=== PATIENT | female | born 1990 | race Caucasian/White ===

== ENCOUNTER 2016-10-31 12:19 | Emergency (ER) | payer SELFPAY ==
[2016-10-31 15:21] VITALS: BP 124/68
--- NOTE | 2016-10-31 19:55 | Diagnostic Imaging Report ---
[facility] [id number] [facility].[address] [address] Report Submission Date: Oct 31, 2016 1:52:54 PM REAL ESTATE INVESTMENT ANALYST Patient Study Name: PAMELA CASAS Date: Oct 31, 2016 1:40:08 PM REAL ESTATE INVESTMENT ANALYST Modality Type: CR Gender: F Description: CHEST : 89 Institution: [facility] Physician CEE GARCIA - ALEC PA and lateral chest CLINICAL HISTORY: Cough difficulty breathing Technique PA and lateral upright FINDINGS: The heart, mediastinal structures and bony thorax are normal. There is no pleural effusion or congenital anomaly. IMPRESSION: No acute pulmonary disease Electronically signed on Oct 31, 2016 1:52:54 PM REAL ESTATE INVESTMENT ANALYST by: Cesar BALES
--- NOTE | 2016-11-01 19:17 | ED Physician Documentation ---
Upper Respiratory Symptoms - HISTORIAN Historian: patient - HPI Stated Complaint: cough, congestion Chief Complaint: Cough/ Upper Respiratory Onset: days ago (1) Duration: sudden-Onset Context: denies: recent foreign travel, insect bite(s), recent chemotherapy, multiple patients, same sx Severity: mild Associated Symptoms: sinus drainage, productive cough Worsened by Deep Breath: No Further Comments: no - ROS CONST/EYES: denies: weakness, eye redness, eye itching CVS/RESP: none, other (cough). denies: chest pain, shortness of breath, palpitations LYMPH: denies: leg swelling, rash, swollen glands, ankle swelling GI/: none NEURO/PSYCH: denies: fainting, dizziness, confusion, anxiety, depression MS/SKIN: denies: joint pain, muscle aches, rash - PAST HX Lung Disease: none PE Risk Factors: none Other History: diabetes Type 2, other (gerd) Surgeries/Procedures: none Immunizations: UTD Allergies/Adverse Reactions: Allergies Allergy/AdvReac Type Severity Reaction Status Date / Time No Known Drug Allergies Allergy Verified 09/28/16 07:22 Home Medications: Ambulatory Orders Medication Instructions Recorded Glyburide [Diabeta] 5 mg PO DAILY 09/06/16 Metformin HCl [GLUCOPHAGE] 1,000 mg PO BID 09/14/16 Ondansetron HCl Rapdis [Zofran Odt] 4 mg PO Q8 #10 tab 09/14/16 Tizanidine HCl [Zanaflex] 4 mg PO TID #35 capsule 09/28/16 - SOCIAL HX Smoking History: cigarettes Alcohol Use: none Drug Use: none - FAMILY HX Family History: no significant history - VITAL SIGNS Vital Signs: Vital Signs Temp Pulse Resp BP Pulse Ox 97.8 F 68 16 124/68 99 10/31/16 15:18 10/31/16 15:18 10/31/16 15:18 10/31/16 15:18 10/31/16 15:18 - REVIEWED ASSESSMENTS Nursing Assessment Reviewed: Yes Vitals Reviewed: Yes Progress - Results/Orders Results/Orders: strep, flu a and b ordered - Progress Progress: pt. stable entire time in er Critical Care Note - Critical Care Note Total Time (mins): 0 ED Results Lab/Radiology - Lab Results Lab Results: Lab Results 10/31/16 13:30 Influenza A (Rapid) Negative (NEGATIVE) Influenza B (Rapid) Negative (NEGATIVE) Group A Strep Screen Negative (NEGATIVE) - Radiology Radiology Impressions: none ordered - Orders Orders: ED Orders Category Date Time Status CHEST 2 VIEW [CHEST P.A.&LAT 2 VIEWS] [RAD] Stat Exams 10/31/16 Completed GRP A STREP SCREEN Routine Lab 10/31/16 13:30 Completed INFLUENZA A&B Routine Lab 10/31/16 13:30 Completed Upper Respiratory Symptoms - EXAM General Appearance: mild distress EENT: eyes nml inspection, nml ENT inspection, lids & conjunct. nml, PERRL, ear nml Neck: normal inspection, thyroid normal, supple Respiratory: no resp. distress, breath sounds nml, no pain on inspiration, speaks full sentences Abdomen: non-tender, no organomegaly, nml bowel sounds, no distention CVS: reg rate & rhythm, heart sounds normal, equal pulses, no murmur, no gallop , PMI nml Skin: color nml, no rash, warm,dry Extremities: non-tender, normal range of motion, no evidence of injury, no edema Neuro/Psych: oriented x3, neuro intact, mood/affect nml Discharge Clincal Impression: Bronchitis Referrals: Klever Glez MD [Primary Care Provider] - 2 Days Home Medications: Ambulatory Orders Glyburide [Diabeta] 5 mg PO DAILY 09/06/16 Metformin HCl [GLUCOPHAGE] 1,000 mg PO BID 09/14/16 Ondansetron HCl Rapdis [Zofran Odt] 4 mg PO Q8 #10 tab 09/14/16 Tizanidine HCl [Zanaflex] 4 mg PO TID #35 capsule 09/28/16 Comments: home in stable condition with prescriptions Condition: Stable Disposition: 01 HOME, SELF-CARE Decision to Admit: NO Decision Time: 15:15
== END 2016-10-31 15:05 | disposition home or self-care (01) ==
LOC: ED 12:19
DX: J20.9 Acute bronchitis, unspecified (principal)
CPT/HCPCS: 71020; 87400; 87880; 99283

== ENCOUNTER 2017-02-21 16:26 | Outpatient (CLI) | payer OTHER ==
[2016-12-29 13:40] VITALS: BP 132/79
[2017-02-21 16:44] LABS: BASOPHILS % 0.3 (0.0-1.5); EOSINOPHILS % 3.8 % (0.0-6.8); MEAN CORPUSCULAR HEMOGLOBIN 29.7 pg (28.0-34.0); MEAN CORPUSCULAR VOLUME 87.4 fl (80.0-100.0); MONOCYTES % 2.4 % (0.0-11.0); NEUTROPHILS # 5.1 # k/uL (1.4-7.7)
[2017-02-21 17:01] LABS: eGFR (African) > 60; eGFR (Non-African) > 60
== END 2017-02-21 16:27 ==
LOC: LAB 16:26
PROVIDERS: ATTEND Physician Assistant
DX: R42 Dizziness and giddiness (principal)
CPT/HCPCS: 36415; 80053; 85025

== ENCOUNTER 2017-04-07 17:58 | Emergency (ER) | payer OTHER ==
[2017-04-07] MEDS: CEFUROXIME AXETIL 250 MG TABLET PO ONE (21:02)
[2017-04-07 22:12] VITALS: BP 132/79
== END 2017-04-07 21:01 | disposition home or self-care (01) ==
LOC: ED 17:58
DX: J02.9 Acute pharyngitis, unspecified (principal)
CPT/HCPCS: 87070; 87880; 99283

== ENCOUNTER 2017-05-01 05:06 | Emergency (ER) | payer OTHER ==
[2017-05-01] MEDS ORDERED: 0.9 % SODIUM CHLORIDE 1,000 ML IV ONE (05:46)
[2017-05-01 06:00] LABS: BASOPHILS % 0.5 (0.0-1.5); EOSINOPHILS % 4.9 % (0.0-6.8); MEAN CORPUSCULAR HEMOGLOBIN 30.2 pg (28.0-34.0); MEAN CORPUSCULAR VOLUME 87.7 fl (80.0-100.0); MONOCYTES % 3.3 % (0.0-11.0); NEUTROPHILS # 5.2 # k/uL (1.4-7.7)
[2017-05-01] MEDS ORDERED: 0.9 % SODIUM CHLORIDE 1,000 ML IV SCH (06:00)
[2017-05-01 06:21] LABS: eGFR (African) > 60; eGFR (Non-African) > 60
--- NOTE | 2017-05-01 06:36 | ED Physician Documentation ---
Abdominal Pain - HISTORIAN Historian: patient - HPI Stated Complaint: urinary frequency, abdominal pain Chief Complaint: Abdominal Pain Additonal Information: suprapubic crampy abd pain started 1 day ago. urinary freq urgency started few hours ago, she has freq UTI. But UA is clean today. Onset: hours Duration: constant Timing: still present Context: denies: out of country travel, bad food Severity: mild Quality: cramping Associated Symptoms: denies: fever, chills, nausea, vomiting Exacerbated by: nothing Relieved by: nothing Further Comments: no - ROS CONST: no problems GI/: none CVS/RESP: none EYES/ENT: none MS/SKIN/LYMPH: none NEURO/PSYCH: none - SOCIAL HX Smoking History: cigarettes Alcohol Use: occasionally Drug Use: none - FAMILY HX Family History: none - PAST HX Past History: bladder infection Other History: diabetes Type 2 Surgeries/Procedures: none Home Medications: Ambulatory Orders Medication Instructions Recorded Metformin HCl [Glucophage] 1,000 mg PO DAILY u2 02/21/17 Allergies/Adverse Reactions: Allergies Allergy/AdvReac Type Severity Reaction Status Date / Time No Known Drug Allergies Allergy Verified 05/01/17 05:16 - VITAL SIGNS Vital Signs: Vital Signs Temp Pulse Resp BP Pulse Ox 97.8 F 81 16 134/87 95 05/01/17 05:10 05/01/17 05:10 05/01/17 05:10 05/01/17 05:10 05/01/17 05:10 - REVIEWED ASSESSMENTS Nursing Assessment Reviewed: Yes Vitals Reviewed: Yes Progress - Results/Orders Results/Orders: labs are all normal, we discussed possibilities. I dont belive a CT would be helpful. Her last period ended 14 days ago, she could be ovulating, she then toldd me she has PCOS, so that's possible. but her concern is the urgency/ frequency. we discussed trying a bladder spasm medicine. she agreed with that. ED Results Lab/Radiology - Lab Results Lab Results: Lab Results 05/01/17 05/01/17 05/01/17 05:50 05:50 05:50 WBC 9.30 K/ul K/ul (4.00-12.00) RBC 4.65 M/ul M/ul (3.90-5.20) Hgb 14.0 g/dL g/dL (12.0-16.0) Hct 40.8 % % (34.5-46.5) MCV 87.7 fl fl (80.0-100.0) MCH 30.2 pg pg (28.0-34.0) MCHC 34.4 g/dL g/dL (30.0-36.0) RDW 12.8 % % (11.3-14.3) Plt Count 227 K/mm3 K/mm3 (130-400) Neut % (Auto) 55.4 % % (39.0-79.0) Lymph % (Auto) 35.0 % % (16.0-50.0) [place] % (Auto) 3.3 % % (0.0-11.0) Eos % (Auto) 4.9 % % (0.0-6.8) Baso % (Auto) 0.5 (0.0-1.5) Neut # (Auto) 5.2 # k/uL # k/uL (1.4-7.7) Lymph # (Auto) 3.3 # k/uL # k/uL (0.6-4.0) [place] # (Auto) 0.3 # k/uL # k/uL (0.0-0.9) Eos # (Auto) 0.5 # k/uL # k/uL (0.0-0.6) Baso # (Auto) 0.0 # k/uL # k/uL (0.0-0.5) Reactive Lymphs % 0.8 % % (0.0-5.0) Reactive Lymphs # 0.1 # k/uL # k/uL (0.0-0.8) Sodium 137 mmol/L mmol/L (136-145) Potassium 3.6 mmol/L mmol/L (3.5-5.0) Chloride 104 mmol/L mmol/L (98-110) Carbon Dioxide 27 mmol/L mmol/L (20-32) BUN 12 mg/dL mg/dL (10-26) Creatinine 0.8 mg/dL mg/dL (0.4-1.5) Estimated Creat Clear 178 Est GFR ( Amer) > 60 (60 - ) Est GFR (Non-Af Amer) > 60 (60 - ) Glucose 184 mg/dL H mg/dL (70-99) Calcium 9.6 mg/dL mg/dL (8.5-10.5) Total Bilirubin 0.1 mg/dL L mg/dL (0.2-1.2) AST 21 U/L U/L (0-41) ALT 27 U/L U/L (0-45) Alkaline Phosphatase 57 U/L U/L (46-116) Total Protein 7.1 g/dL g/dL (6.0-8.5) Albumin 4.7 g/dL g/dL (3.0-5.5) Serum HCG, Qual Negative (NEGATIVE) - Orders Orders: ED Orders Category Date Time Status CBC/PLATELET/DIFF Routine Lab 05/01/17 05:50 Completed CMP Routine Lab 05/01/17 05:50 Completed SERUM HCG Routine Lab 05/01/17 05:50 Completed URINALYSIS Routine Lab 05/01/17 Ordered 0.9 % Sodium Chloride [Normal Saline] 1,000 ml Med 05/01/17 06:00 Ordered IV Q10H Abdominal Pain Physical Exam - Physical Exam General Appearance: no acute distress, alert EENT: ENT inspection normal, no signs of dehydration NECK: normal inspection RESPIRATORY: no resp distress CVS: reg rate & rhythm ABDOMEN: soft, tenderness (suprapubic). No: rebound, distended, guarding SKIN: warm/dry, normal color EXTREMITIES: non-tender NEURO: oriented X3, mood/affect nml, cognition normal Vital Signs: Vital Signs Temp Pulse Resp BP Pulse Ox 97.8 F 81 16 134/87 95 05/01/17 05:10 05/01/17 05:10 05/01/17 05:10 05/01/17 05:10 05/01/17 05:10 Discharge Clincal Impression: Bladder spasm Referrals: Klever Glez MD [Primary Care Provider] - 2 Days Home Medications: Ambulatory Orders Metformin HCl [Glucophage] 1,000 mg PO DAILY u2 02/21/17 Condition: Stable Disposition: 01 HOME, SELF-CARE Decision to Admit: NO Date of Decison to Admit: 05/01/17 Decision Time: 06:36
[2017-05-01 06:54] VITALS: BP 126/81
[2017-05-02 06:30] LABS: APPEARANCE,URINE CLEAR (CLEAR); COLOR,URINE YELLOW (YELLOW); OCCULT BLOOD,URINE NEGATIVE (NEGATIVE); PH URINE 5.5 (5.0 - 8.0); UROBILINOGEN URINE 0.2 Eu (0.2-1.0)
== END 2017-05-01 06:48 | disposition home or self-care (01) ==
LOC: ED 05:06
DX: N32.89 Other specified disorders of bladder (principal)
CPT/HCPCS: 80053; 84703; 85025; J7030; 81002; 96360; 99283; S1016

== ENCOUNTER 2018-01-06 18:05 | Emergency (ER) | payer SELFPAY ==
--- NOTE | 2018-01-06 18:17 | ED Physician Documentation ---
Abdominal Pain - HISTORIAN Historian: patient - HPI Chief Complaint: Flank Pain Onset: days ago (yesterday) Timing: still present Context: denies: out of country travel, bad food Severity: moderate Quality: burning Associated Symptoms: fever (low grade). denies: chills, nausea, vomiting, coffee ground emesis, diarrhea - ROS CONST: no problems GI/: dark urine, problems urinating, other (no diarrhea). denies: constipation, black stools, bloody urine, bloody stools MS/SKIN/LYMPH: none NEURO/PSYCH: none - SOCIAL HX Smoking History: greater than 1 pack/day (1 ppd) Alcohol Use: rarely Drug Use: none - FAMILY HX Family History: other (DM) - PAST HX Past History: bladder infection, other (gout) Other History: diabetes Type 2 Surgeries/Procedures: other (myringotomy tubes) <Klever Glez - Last Filed: 01/06/18 18:15> - REVIEWED ASSESSMENTS Nursing Assessment Reviewed: Yes Vitals Reviewed: Yes <Augie Moon - Last Filed: 01/07/18 01:13> - HPI Additonal Information: 27yo white female who developed some pain in the lower abd area with radiation into the left flank area. Pain is worse with urinating. No hematuria noted. Has been stinging and burning with urination. Denies . (Klever Glez) - PAST HX Home Medications: Ambulatory Orders Medication Instructions Recorded Ciprofloxacin HCl [Cipro] 500 mg PO BID #10 tablet 01/06/18 Allergies/Adverse Reactions: Allergies Allergy/AdvReac Type Severity Reaction Status Date / Time No Known Drug Allergies Allergy Verified 01/06/18 18:36 - VITAL SIGNS Vital Signs: Vital Signs Temp Pulse Resp BP Pulse Ox 98.7 F 82 16 116/72 98 01/06/18 18:10 01/06/18 21:20 01/06/18 21:20 01/06/18 21:20 01/06/18 21:20 Progress <Klever Glez - Last Filed: 01/06/18 18:15> <Augie Moon - Last Filed: 01/07/18 01:13> - Progress Progress: CT abd/pelvis w iv contrast: The lung bases are clear. There is fatty infiltration of the liver. The gallbladder, spleen, pancreas, kidneys and adrenal glands are normal. There is no hydronephrosis, hydroureter, free intraperitoneal air, fluid or adenopathy. There is no bowel obstruction. The appendix is normal. The uterus is grossly normal. The aorta enhances normally. There is no adenopathy. Rx Ciprofloxacin 500 mg. Take one by mouth every 12 hrs for 5 days. (Augie Moon) - Lab Results Lab Results: Lab Results 01/06/18 01/06/18 18:57 18:57 WBC 8.70 K/ul K/ul (4.00-12.00) RBC 4.76 M/ul M/ul (3.90-5.20) Hgb 14.5 g/dL g/dL (12.0-16.0) Hct 42.4 % % (34.5-46.5) MCV 89.0 fl fl (80.0-100.0) MCH 30.4 pg pg (28.0-34.0) MCHC 34.1 g/dL g/dL (30.0-36.0) RDW 12.3 % % (11.3-14.3) Plt Count 227 K/mm3 K/mm3 (130-400) Neut % (Auto) 61.2 % % (39.0-79.0) Lymph % (Auto) 30.4 % % (16.0-50.0) [place] % (Auto) 2.6 % % (0.0-11.0) Eos % (Auto) 3.9 % % (0.0-6.8) Baso % (Auto) 0.4 (0.0-1.5) Neut # (Auto) 5.3 # k/uL # k/uL (1.4-7.7) Lymph # (Auto) 2.6 # k/uL # k/uL (0.6-4.0) [place] # (Auto) 0.2 # k/uL # k/uL (0.0-0.9) Eos # (Auto) 0.3 # k/uL # k/uL (0.0-0.6) Baso # (Auto) 0.0 # k/uL # k/uL (0.0-0.5) Reactive Lymphs % 1.4 % % (0.0-5.0) Reactive Lymphs # 0.1 # k/uL # k/uL (0.0-0.8) Sodium 142 mmol/L mmol/L (136-145) Potassium 3.6 mmol/L mmol/L (3.5-5.1) Chloride 100 mmol/L mmol/L (98-107) Carbon Dioxide 26 mmol/L mmol/L (22-30) BUN 10 mg/dL mg/dL (7-17) Creatinine 0.70 mg/dL mg/dL (0.52-1.04) Estimated Creat Clear 205 Est GFR ( Amer) > 60 (60 - ) Est GFR (Non-Af Amer) > 60 (60 - ) Glucose 113 mg/dL H mg/dL (74-106) Calcium 9.1 mg/dL mg/dL (8.4-10.2) Total Bilirubin 0.7 mg/dL mg/dL (0.2-1.3) AST 28 U/L U/L (15-46) ALT 54 U/L U/L (13-69) Alkaline Phosphatase 59 U/L U/L (38-126) Total Protein 7.3 g/dL g/dL (6.3-8.2) Albumin 4.2 g/dL g/dL (3.5-5.0) - Orders Orders: ED Orders Category Date Time Status Place IV Lock 1T Care 01/06/18 18:[address] ABD & PELVIS W/ CON Stat Exams 01/06/18 Taken CBC/PLATELET/DIFF Routine Lab 01/06/18 18:57 Completed CMP Routine Lab 01/06/18 18:57 Completed URINALYSIS Routine Lab 01/06/18 18:25 Ordered URINE HCG Routine Lab 01/06/18 18:40 Ordered 0.9 % Sodium Chloride [Normal Saline] 1,000 ml Med 01/06/18 20:05 Discontinued IV Q1H Ciprofloxacin HCl [Cipro] Med 01/06/18 20:47 Discontinued 500 mg PO NOW ONE Ketorolac Tromethamine [Toradol] Med 01/06/18 20:22 Discontinued 30 mg IVP NOW ONE Ketorolac Tromethamine [Toradol] Med 01/07/18 00:00 Discontinued 30 mg IVP Q6 Abdominal Pain Physical Exam - Physical Exam General Appearance: alert, moderate distress NECK: normal inspection, thyroid normal, supple. No: lymphadenopathy RESPIRATORY: no resp distress, chest non-tender, breath sounds normal. No: wheezes, rales, rhonchi CVS: reg rate & rhythm, heart sounds normal, equal pulses, no murmur, no gallop ABDOMEN: soft, no organomegaly, no abdominal bruit, no distension, tenderness ( LUQ, LLQ, supra pubic area), decreased BS BACK: normal inspection, no CVA tenderness SKIN: warm/dry EXTREMITIES: non-tender, normal range of motion NEURO: oriented X3, mood/affect nml, cognition normal <Klever Glez - Last Filed: 01/06/18 18:15> - Physical Exam Vital Signs: Vital Signs Temp Pulse Resp BP Pulse Ox 98.7 F 82 16 116/72 98 01/06/18 18:10 01/06/18 21:20 01/06/18 21:20 01/06/18 21:20 01/06/18 21:20 Discharge <Klever Glez - Last Filed: 01/06/18 18:15> Decision to Admit: NO Date of Decison to Admit: 12/09/17 (211:20) Decision Time: 21:20 <Augie Moon - Last Filed: 01/07/18 01:13> Clincal Impression: Dysuria Prescriptions: Ciprofloxacin HCl [Cipro] 500 mg PO BID #10 tablet Referrals: Klever Glez MD [Primary Care Provider] - Disposition: HOME, SELF-CARE
[2018-01-06 19:07] LABS: BASOPHILS % 0.4 (0.0-1.5); EOSINOPHILS % 3.9 % (0.0-6.8); MEAN CORPUSCULAR HEMOGLOBIN 30.4 pg (28.0-34.0); MONOCYTES % 2.6 % (0.0-11.0); NEUTROPHILS # 5.3 # k/uL (1.4-7.7)
[2018-01-06 19:27] LABS: eGFR (African) > 60; eGFR (Non-African) > 60
[2018-01-06] MEDS: 0.9 % SODIUM CHLORIDE 1,000 ML IV ONE (20:13)
[2018-01-06] MEDS: KETOROLAC TROMETHAMINE 30 MG/1ML VIAL ONE (20:25)
[2018-01-06] MEDS: KETOROLAC TROMETHAMINE 30 MG/1ML VIAL IVP ONE (20:25)
[2018-01-06] MEDS: CIPROFLOXACIN HCL 500 MG TABLET PO ONE (21:03)
[2018-01-06 21:44] VITALS: BP 116/72
[2018-01-07] MEDS ORDERED: KETOROLAC TROMETHAMINE 30 MG/1ML VIAL IVP SCH
--- NOTE | 2018-01-07 05:26 | Diagnostic Imaging Report ---
SHAHNAZ LEACH [facility] [address] [facility] [address] [address] Report Submission Date: Jan 06, 2018 8:03:24 PM CDT Patient Study Name: PAMELA BECKER Date: Jan 06, 2018 7:31:18 PM CDT Modality Type: CT\SR Gender: F Description: CT ABD/PEL C : 89 Institution: [facility] Physician: SHAHNAZ LEACH CT abdomen and pelvis with intravenous contrast HISTORY Abdominal pain. TECHNIQUE Images through the abdomen and pelvis were obtained following intravenous contrast administration. FINDINGS The lung bases are clear. There is fatty infiltration of the liver. The gallbladder, spleen, pancreas, kidneys and adrenal glands are normal. There is no hydronephrosis, hydroureter, free intraperitoneal air, fluid or adenopathy. There is no bowel obstruction. The appendix is normal. The uterus is grossly normal. The aorta enhances normally. There is no adenopathy. IMPRESSION Fatty infiltration of the liver. Otherwise normal. Electronically signed on Jan 06, 2018 8:03:24 PM CDT by: Joey BALES
[2018-01-07 06:42] LABS: APPEARANCE,URINE CLEAR (CLEAR); COLOR,URINE YELLOW (YELLOW); OCCULT BLOOD,URINE NEGATIVE (NEGATIVE); PH URINE 5.5 (5.0 - 8.0); URINE HCG NEGATIVE (NEGATIVE); UROBILINOGEN URINE 0.2 Eu (0.2-1.0)
== END 2018-01-06 21:20 | disposition home or self-care (01) ==
LOC: ED 18:05
DX: R30.0 Dysuria (principal); E11.9 Type 2 diabetes mellitus without complications
CPT/HCPCS: 74177; 80053; 81002; 81025; 85025; J1885; J7030; 96365; 96375; 99283; S1016

== ENCOUNTER 2018-01-22 12:37 | Emergency (ER) | payer SELFPAY ==
--- NOTE | 2018-01-22 12:40 | ED Physician Documentation ---
General Adult - HISTORIAN Historian: patient - HPI Stated Complaint: elevated BS Chief Complaint: General Adult Onset: other (couple of hours ago ) Timing: better Severity: mild Further Comments: yes (reports she had nothing to eat this am and when she went to her moms she noticed "slight" nausea and some feeling like she might vomit - she was then "dry heaving" although she did not vomit she had some of her gatorade return into her mouth. She states after this "vomiting/dry heaving" episode she "blacked out". She states she did have a UTI two weeks ago and she did finish her medications. She also states she does not take any meds due to insurance status and cost.) Last known Well Date: 01/22/18 Last Known Well Time: 08:00 Last known Well Code/Unknown Code: Unknown - ROS CONST: no problems EYES/ENT: none CVS/RESP: none GI/: vomiting, nausea. denies: abdominal pain, problems urinating, diarrhea MS/SKIN/LYMPH: none NEURO/PSYCH: headache - PAST HX Past History: other (GERD ) Other History: diabetes Type 2 Surgeries/Procedures: none Immunizations: UTD Allergies/Adverse Reactions: Allergies Allergy/AdvReac Type Severity Reaction Status Date / Time No Known Drug Allergies Allergy Verified 01/06/18 18:36 Home Medications: Ambulatory Orders Medication Instructions Recorded NK [NK] 01/22/18 - SOCIAL HX Smoking History: cigarettes Alcohol Use: none Drug Use: none - FAMILY HX Family History: No - VITAL SIGNS Vital Signs: Vital Signs Temp Pulse Resp BP Pulse Ox 116/72 01/06/18 21:20 - REVIEWED ASSESSMENTS Nursing Assessment Reviewed: Yes Vitals Reviewed: Yes General Adult Physical Exam - PHYSICAL EXAM GENERAL APPEARANCE: no distress EENT: eye inspection normal, ZACKARY NECK: normal inspection RESPIRATORY: no resp distress, chest non-tender, breath sounds normal CVS: reg rate & rhythm, heart sounds normal, equal pulses, no murmur ABDOMEN: soft, no organomegaly, normal bowel sounds, no distension, non-tender BACK: normal inspection SKIN: warm/dry, normal color EXTREMITIES: non-tender, normal range of motion, no evidence of injury, no edema NEURO: oriented X3, CN's nml as tested, motor nml, sensation nml, mood/affect nml Discharge Clincal Impression: Nausea & vomiting Qualifiers: Vomiting type: unspecified Vomiting Intractability: unspecified Qualified Code( s): R11.2 - Nausea with vomiting, unspecified Referrals: Klever Glez MD [Primary Care Provider] - 2 Days Comments: 1. [place] diet 2. Watch sugar and carb 3. See PCP for diabetic care 4. Return to ER for any increase in symptoms 5. Zofran 4 mg take 1 by mouth every 8 hours as needed for nausea Condition: Stable Disposition: 01 HOME, SELF-CARE Decision to Admit: NO Date of Decison to Admit: 01/22/18 Decision Time: 13:40
[2018-01-22] MEDS ORDERED: ONDANSETRON HCL/PF 4 MG/ 2ML VIAL ONE (12:41)
[2018-01-22] MEDS ORDERED: ONDANSETRON HCL/PF 4 MG/ 2ML VIAL IVP ONE (12:41)
[2018-01-22] MEDS ORDERED: 0.9 % SODIUM CHLORIDE 500 ML IV ONE (12:45)
[2018-01-22 13:02] LABS: BASOPHILS % 0.4 (0.0-1.5); EOSINOPHILS % 2.1 % (0.0-6.8); MEAN CORPUSCULAR HEMOGLOBIN 29.5 pg (28.0-34.0); MEAN CORPUSCULAR VOLUME 88.8 fl (80.0-100.0); MONOCYTES % 2.7 % (0.0-11.0); NEUTROPHILS # 4.4 # k/uL (1.4-7.7)
[2018-01-22] MEDS ORDERED: 0.9 % SODIUM CHLORIDE 1,000 ML IV ONE (13:10)
[2018-01-22 13:21] LABS: eGFR (Non-African) > 60
[2018-01-22 14:11] VITALS: BP 128/86
[2018-01-23 05:29] LABS: APPEARANCE,URINE CLEAR (CLEAR); COLOR,URINE YELLOW (YELLOW); OCCULT BLOOD,URINE NEGATIVE (NEGATIVE); PH URINE 6.5 (5.0 - 8.0); UROBILINOGEN URINE 0.2 Eu (0.2-1.0)
== END 2018-01-22 13:55 | disposition home or self-care (01) ==
LOC: ED 12:37
DX: R11.2 Nausea with vomiting, unspecified (principal)
CPT/HCPCS: 80053; 81002; 84703; 85025; 96365; 96375; 99283; J2405; J7060

== ENCOUNTER 2018-02-26 16:07 | Emergency (ER) | payer SELFPAY ==
--- NOTE | 2018-02-26 16:10 | ED Physician Documentation ---
General Adult - HISTORIAN Historian: patient - HPI Stated Complaint: tachycardia Chief Complaint: Palpitations Onset: days ago (2) Timing: still present Severity: mild Further Comments: yes (Reports for the last month or more she just "hasnt felt right" she reports her periods are "funny and watery". She reports she has had times where she feels her heart is racing or beating funny. She denies any changes in stress or eating habits. Denies any history of heart issues. she denies chest pain but today she "feels funny" She is not able to recall what this means. She has not followed up with her PCP since the last ER visit last month.) Last known Well Code/Unknown Code: Unknown - ROS CONST: no problems EYES/ENT: denies: problems with vision, sore throat, nasal drainage CVS/RESP: denies: chest pain, shortness of breath, cough GI/: nausea. denies: abdominal pain, problems urinating MS/SKIN/LYMPH: denies: rash - PAST HX Past History: none Other History: diabetes Type 2 Surgeries/Procedures: other Immunizations: UTD Allergies/Adverse Reactions: Allergies Allergy/AdvReac Type Severity Reaction Status Date / Time No Known Drug Allergies Allergy Verified 02/26/18 16:24 Home Medications: Ambulatory Orders Medication Instructions Recorded NK [NK] 01/22/18 - SOCIAL HX Smoking History: non-smoker Alcohol Use: none Drug Use: none - FAMILY HX Family History: No - VITAL SIGNS Vital Signs: Vital Signs Temp Pulse Resp BP Pulse Ox 128/86 01/22/18 13:55 - REVIEWED ASSESSMENTS Nursing Assessment Reviewed: Yes Vitals Reviewed: Yes ED Results Lab/Radiology - Radiology Radiology Impressions: 2 views of the chest History: PALPATATIONS X2 DAYS, NO KNOWN HX OF CHEST PROBLEMS, SMOKER No comparison studies Heart is normal in size. There is no focal consolidation, pleural effusion or pneumothorax. There is minimal right basilar atelectasis. Mild thoracic spine degenerative changes are present. Impression: No focal consolidation or pleural effusion. Electronically signed on February 26, 2018 5:40:51 PM CDT by: Rozina Hallman General Adult Physical Exam - PHYSICAL EXAM GENERAL APPEARANCE: no distress EENT: eye inspection normal, ENT inspection normal NECK: normal inspection RESPIRATORY: no resp distress, chest non-tender, breath sounds normal CVS: reg rate & rhythm, heart sounds normal, equal pulses, no murmur ABDOMEN: soft, normal bowel sounds SKIN: warm/dry, normal color EXTREMITIES: non-tender, normal range of motion, no evidence of injury, no edema NEURO: oriented X3, CN's nml as tested, motor nml, sensation nml, mood/affect nml, cognition normal Discharge Clincal Impression: Palpitations Referrals: Klever Glez MD [Primary Care Provider] - 2 Days Comments: 1. Decrease caffeine 2. Increase fluids 3. Follow up with PCP in 2 days 4. return to ER for any further concerns Condition: Stable Disposition: 01 HOME, SELF-CARE Decision to Admit: NO Date of Decison to Admit: 02/26/18 Decision Time: 17:45
[2018-02-26 16:52] LABS: BASOPHILS % 0.3 (0.0-1.5); EOSINOPHILS % 4.2 % (0.0-6.8); MEAN CORPUSCULAR HEMOGLOBIN 29.6 pg (28.0-34.0); MEAN CORPUSCULAR VOLUME 88.8 fl (80.0-100.0); MONOCYTES % 2.7 % (0.0-11.0); NEUTROPHILS # 4.2 # k/uL (1.4-7.7)
[2018-02-26 17:07] LABS: eGFR (African) > 60; eGFR (Non-African) > 60
[2018-02-26 17:58] VITALS: BP 133/71
--- NOTE | 2018-02-26 18:51 | Diagnostic Imaging Report ---
OLIVIER HUANG [facility] [address] [facility] [address] [place], [place]. [address] Report Submission Date: February 26, 2018 5:40:51 PM CDT Patient Study Name: PAMELA CASAS Date: February 26, 2018 5:18:49 PM CDT Modality Type: DX Gender: F Description: CHEST : 89 Institution: [facility] Physician: OLIVIER HUANG 2 views of the chest History: PALPATATIONS X2 DAYS, NO KNOWN HX OF CHEST PROBLEMS, SMOKER No comparison studies Heart is normal in size. There is no focal consolidation, pleural effusion or pneumothorax. There is minimal right basilar atelectasis. Mild thoracic spine degenerative changes are present. Impression: No focal consolidation or pleural effusion. Electronically signed on February 26, 2018 5:40:51 PM CDT by: Rozina BALES
== END 2018-02-26 17:57 | disposition home or self-care (01) ==
LOC: ED 16:07
DX: R00.2 Palpitations (principal)
CPT/HCPCS: 71046; 80053; 82550; 84484; 85025; 99283; S1016

== ENCOUNTER 2018-03-14 00:17 | Emergency (ER) | payer SELFPAY ==
--- NOTE | 2018-03-14 00:22 | ED Physician Documentation ---
Skin Rash - HISTORIAN Historian: patient - HPI Stated Complaint: skin concern on left leg lateral to knee Chief Complaint: Skin Rash Onset: hours (2) Timing: still present Location: LLE Quality: painful Identified Cause?: No Where: home Context: Medication Exposure: none Context: Food Exposure: none - ROS CONST: none - PAST HX Past History: none Other History: none Surgeries/Procedures: No Immunizations: UTD Allergies/Adverse Reactions: Allergies Allergy/AdvReac Type Severity Reaction Status Date / Time No Known Drug Allergies Allergy Verified 02/26/18 16:24 Home Medications: Ambulatory Orders Medication Instructions Recorded NK [NK] 01/22/18 - SOCIAL HX Smoking History: non-smoker Alcohol Use: none Drug Use: none - FAMILY HX Family History: none - VITAL SIGNS Vital Signs: Vital Signs Temp Pulse Resp BP Pulse Ox 133/71 02/26/18 17:57 - REVIEWED ASSESSMENTS Nursing Assessment Reviewed: Yes Vitals Reviewed: Yes Skin Rash Physical Exam - EXAM General Appearance: no acute distress Skin: warm,dry, other (small pinpoint area on left lateral leg. No redness, no drainge, no swelling. No other concerns with skin near area ) Character: other (pin point skin colored area ) Symptoms: No: warmth, tenderness, swelling Extremities: non-tender Respiratory: no resp distress, chest non-tender CVS: reg. rate & rhythm, heart sounds nml Abdomen: non-tender Neuro/Psych: oriented x3, CN's nml as tested, motor nml, sensation nml, mood/ affect nml Discharge Clincal Impression: Skin abnormalities Referrals: Klever Glez MD [Primary Care Provider] - 2 Days Additional Instructions: 1. Keep area clean and dry 2. warm pack if needed 3. Follow up with PCP in 2-4 days if area continues to increase in symptoms 4. Return to ER for any concerns Condition: Stable Disposition: 01 HOME, SELF-CARE Decision to Admit: NO Date of Decison to Admit: 03/14/18 Decision Time: 00:29
[2018-03-14 00:31] VITALS: BP 140/93
== END 2018-03-14 00:34 | disposition home or self-care (01) ==
LOC: ED 00:17
DX: L98.9 Disorder of the skin and subcutaneous tissue, unspecified (principal)
CPT/HCPCS: 99282

== ENCOUNTER 2019-05-07 17:13 | Emergency (ER) | payer SELFPAY ==
--- NOTE | 2019-05-07 17:37 | ED Physician Documentation ---
General Adult - HISTORIAN Historian: patient - HPI Stated Complaint: cough, sore throat, chills Chief Complaint: General Adult Onset: days ago (3) Timing: still present, worse Severity: moderate Further Comments: yes (Pt is a 28 yo female with cough, chest congestion, and sore throat x 3 days. Pt has had chills. No n/v.) - ROS CONST: chills EYES/ENT: sore throat CVS/RESP: cough GI/: none MS/SKIN/LYMPH: none - PAST HX Past History: other (anxiety, depression, DM) Allergies/Adverse Reactions: Allergies Allergy/AdvReac Type Severity Reaction Status Date / Time No Known Drug Allergies Allergy Verified 05/07/19 18:00 Home Medications: Ambulatory Orders Medication Instructions Recorded Azithromycin [Zithromax] 250 mg PO DAILY #6 tablet 05/07/19 Citalopram Hydrobromide [Celexa] 1 tab PO DAILY 05/07/19 Metformin HCl 1 tab PO BID 05/07/19 - SOCIAL HX Smoking History: cigarettes - FAMILY HX Family History: No - VITAL SIGNS Vital Signs: Vital Signs Temp Pulse Resp BP Pulse Ox 140/93 03/14/18 00:27 - REVIEWED ASSESSMENTS Nursing Assessment Reviewed: Yes Vitals Reviewed: Yes Progress - Progress Progress: Rx Z-ronan, use as directed. - EKG/XRAY/CT XRAY: chest (No active disease.) General Adult Physical Exam - PHYSICAL EXAM GENERAL APPEARANCE: mild distress EENT: eye inspection normal, pharyngeal erythema NECK: normal inspection, supple RESPIRATORY: no resp distress, chest non-tender, other (cough) CVS: reg rate & rhythm, heart sounds normal ABDOMEN: soft, no organomegaly, normal bowel sounds BACK: normal inspection, no CVA tenderness SKIN: warm/dry, normal color EXTREMITIES: non-tender, normal range of motion, no evidence of injury NEURO: oriented X3, motor nml, sensation nml Discharge Clincal Impression: URI (upper respiratory infection) Qualifiers: URI type: unspecified URI Qualified Code(s): J06.9 - Acute upper respiratory infection, unspecified Prescriptions: Azithromycin [Zithromax] 250 mg PO DAILY #6 tablet Referrals: Klever Glez MD [STAFF PHYSICIAN] - 2 Days Condition: Stable Disposition: 01 HOME, SELF-CARE Decision to Admit: NO Decision Time: 18:35
[2019-05-07 18:57] VITALS: BP 126/92
[2019-05-07 19:36] LABS: APPEARANCE,URINE CLEAR (CLEAR); COLOR,URINE AMBER (YELLOW)
[2019-05-07 19:39] LABS: OCCULT BLOOD,URINE NEGATIVE (NEGATIVE); PH URINE 5.5 (5.0 - 8.0)
--- NOTE | 2019-05-07 19:55 | Diagnostic Imaging Report ---
BROOKE HORTON [facility] [id number] Formerly [facility], [facility] [address] [place], [place]. [address] Report Submission Date: May 07, 2019 6:16:30 PM CDT Patient Study Name: PAMELA CASAS Date: May 07, 2019 5:59:55 PM CDT Modality Type: DX Gender: F Description: CHEST 2VIEW : 91 Institution: [facility] Physician: BROOKE HORTON PA AND LATERAL CHEST HISTORY: Cough COMPARISON: February 2018 PA and Lateral Chest dated May 07, 2019 demonstrates a normal cardiomediastinal silhouette. Pulmonary vascularity is normal. Lungs are clear. IMPRESSION: NO ACTIVE DISEASE. Electronically signed on May 07, 2019 6:16:30 PM CDT by: Yelena BALES
== END 2019-05-07 18:48 | disposition home or self-care (01) ==
LOC: ED 17:13
DX: J06.9 Acute upper respiratory infection, unspecified (principal); F17.210 Nicotine dependence, cigarettes, uncomplicated
CPT/HCPCS: 71046; 81002; 87070; 87880

== ENCOUNTER 2019-05-29 23:48 | Emergency (ER) | payer SELFPAY ==
--- NOTE | 2019-05-30 00:21 | ED Physician Documentation ---
Low Back Pain - HISTORIAN Historian: patient - HPI Stated Complaint: Back Pain Chief Complaint: Low Back Pain/ Injury Additional Information: 28yo white female who has a 2 week history of history of right lower back pain. No precipitating factor noted. This eveing pain got worse . She has been having some pain radiate down into the RLE. Has had some tingling sensation. in the leg Pain travels down the posteriori aspect of leg. Walking seems to make it worse. Resting seems to help. She was off of it for a day then it got better for ashort period fo time Onset: days ago (2 weeks) Duration: continues in ED Recent Injury: No Severity: moderate Associated Symptoms: denies: fever, chills Worsened By:: upright position, other (walking) Relieved By: supine, remaining still - ROS CONST: no problems MS/SKIN/LYMPH: none - PAST HX Past History: other (gout, PTSD) Other History: diabetes Type 2 Surgeries/Procedures: none Immunizations: UTD Allergies/Adverse Reactions: Allergies Allergy/AdvReac Type Severity Reaction Status Date / Time No Known Drug Allergies Allergy Verified 05/07/19 18:00 Home Medications: Ambulatory Orders Medication Instructions Recorded NK 05/30/19 - SOCIAL HX Smoking History: less than 1 pack/day (1/2 pack day) Alcohol Use: none Drug Use: none - FAMILY HX Family History: no significant history, other (distant DM) - VITAL SIGNS Vital Signs: Vital Signs Temp Pulse Resp BP Pulse Ox 98.7 F 92 H 16 142/94 98 05/29/19 23:48 05/29/19 23:48 05/29/19 23:48 05/29/19 23:48 05/29/19 23:48 - REVIEWED ASSESSMENTS Nursing Assessment Reviewed: Yes Vitals Reviewed: Yes ED Results Lab/Radiology - Radiology Radiology Impressions: L spine - normal - Orders Orders: ED Orders Category Date Time Status L SPINE 2 OR 3 VIEWS [RAD] Stat Exams 05/30/19 Ordered URINALYSIS Routine Lab 05/30/19 Uncollected URINE HCG Routine Lab 05/30/19 Uncollected Ketorolac Tromethamine [Toradol] Med 05/30/19 00:27 Once 60 mg IM NOW ONE Low Back Pain/Injury - Physical Exam General Appearance: alert, mild distress Neck: non-tender, painless ROM, trachea midline. No: vertebral point-tendernes, muscle spasm Resp/CVS: chest non-tender, breath sounds nml, heart sounds nml. No: wheezes, rales, rhonchi Abdomen: non-tender, no organomegaly, no pulsatile mass Back: CVA tenderness (right low), other (tender to palpation over the right perispinal area. ). No: vertebral point-tendernes, muscle spasm Straight Leg Raising: Positive Right (60 degrees) Neuro/Psych: oriented x3, motor nml, sensation nml, reflexes nml (knees 2/4 bilaterally, ankles 1/4 bilaterally), mood/affect nml Skin: warm/dry, normal color Extremities: normal range of motion, no evidence of injury, no edema Discharge Clincal Impression: Acute low back pain, Sciatica Referrals: Primary Doctor,No [Primary Care Provider] - 2 Days Additional Instructions: Start taking Aleve 220mg tablets, 2 tablets twice a day with food. Make an appointment with your primary care provider, you may need further imaging of the back. Consider physical therapy if symptoms do not get better. Try using a ool comprss to the back area. Work excuse given for two days. Condition: Stable Disposition: 01 HOME, SELF-CARE Decision to Admit: NO Date of Decison to Admit: 05/30/19 Decision Time: 00:58
[2019-05-30] MEDS ORDERED: KETOROLAC TROMETHAMINE 60 MG/2 ML VIAL IM ONE (00:27)
--- NOTE | 2019-05-30 00:46 | Diagnostic Imaging Report ---
SHAHNAZ LEACH [facility] [id number] Formerly [facility] [address] [place] [address]. [id number] Report Submission Date: May 30, 2019 12:45:04 AM CDT Patient Study Name: PAMELA CASAS Date: May 30, 2019 12:22:11 AM CDT Modality Type: DX Gender: F Description: L SPINE 2 OR 3 VIEWS : 89 Institution: [facility] Physician: SHAHNAZ LEACH Three-view lumbar spine Clinical history: Low back pain for 2 weeks. Findings: Examination lumbar spine in AP, lateral and lateral coned-down views demonstrates vertebrae to be anatomically aligned. Pedicles are intact and the paravertebral soft tissues are within normal limits. There is no evident fracture. Impression: 1. Negative lumbar spine. Electronically signed on May 30, 2019 12:45:04 AM CDT by: Jaxson BALES
[2019-05-30 01:13] VITALS: BP 128/83
[2019-05-30 08:58] LABS: APPEARANCE,URINE CLEAR (CLEAR); COLOR,URINE YELLOW (YELLOW); OCCULT BLOOD,URINE NEGATIVE (NEGATIVE); UROBILINOGEN URINE 0.2 Eu (0.2-1.0)
== END 2019-05-30 01:06 | disposition home or self-care (01) ==
LOC: ED 23:48
DX: M54.40 Lumbago with sciatica, unspecified side (principal)
CPT/HCPCS: 72100; 81002; 81025; 96372; 99283; J1885